=== PATIENT | female | born 1950 | race Caucasian/White ===

== ENCOUNTER 2020-05-17 15:19 | Emergency (ER) | payer MEDICARE, OTHER, SELFPAY ==
--- NOTE | 2020-05-17 15:47 | ED.FEMALEGU ---
HPI - Female Genitourinary General Chief complaint: Urogenital-Female Stated complaint: possible uti Time Seen by Provider: 05/17/20 15:47 Source: patient and RN notes reviewed History of Present Illness HPI Narrative: Patient is a 70-year-old female who presents the urgent care with complaints of a possible UTI. Patient states that she has had a history of UTIs in the past and she has had vague symptoms. Therefore patient states that the her only symptom at this time is cloudy urine. Patient states she noticed a cloudy urine approximately 30 minutes prior to arrival. Denies any urinary frequency, urgency, nausea, vomiting, dysuria, abdominal pain. Patient has not taken anything for her symptoms [id number]. No other acute complaints. No acute distress noted. Patient aware of the plan of care. Related Data Home Medications Medication Instructions Recorded Confirmed hydrochlorothiazide 25 mg PO DAILY 09/20/19 Allergies Allergy/AdvReac Type Severity Reaction Status Date / Time No Known Drug Allergies Allergy Intermediate Unknown Verified 09/20/19 08:18 Review of Systems Review of Systems: Narrative: CONSTITUTIONAL: Denies fever, chills, or sweats. EYES: Denies visual changes, redness, or discharge. ENT: Denies rhinorrhea, congestion, sore throat, or otalgia. CARDIOVASCULAR: Denies chest pain, palpitations, or edema. RESPIRATORY: Denies cough or dyspnea. GASTROINTESTINAL: Denies abdominal pain, nausea, vomiting, or diarrhea. GENITOURINARY: Denies dysuria or hematuria. Reports of cloudy urine SKIN: Denies rash or itching. MUSCULOSKELETAL: Denies back pain, joint pain, or myalgia. NEUROLOGIC: Denies headache, numbness, or weakness. All other systems reviewed are negative, except as documented in HPI. [facility] Past Medical History Medical History (Updated 05/17/20 @ 16:01 by GIANNA Olivia) Bladder cancer HTN (hypertension) Kidney stones UTI (urinary tract infection) Surgical History Surgical History (Updated 09/20/19 @ 08:57 by Christine Aviles) H/O lumpectomy H/O: hysterectomy History of bladder surgery Social History Social History (Updated 09/20/19 @ 08:57 by Christine Aviles) Smoking status: Never smoker Gender identity (if verbalized by the patient): Female Comments At the time of my signature, I reviewed and agree with the nursing past medical, surgical, social, and family history. There is no relevant family history pertinent to the patient complaint. Exam Narrative: Exam Narrative: GENERAL: This is a well-nourished, well-developed patient, in no apparent distress. HEAD: normocephalic, atraumatic. EYES: PERRL. Sclera clear/white. Vision is grossly intact. EARS: External ears normal NOSE: External nose normal with no obvious nasal discharge, nares without redness, no rhinorrhea. THROAT: Mucous membranes moist NECK: Neck supple GASTROINTESTINAL: Abdomen soft, non-tender, nondistended. SKIN: warm, intact with no suspicious lesions or rash, good texture and turgor. NEURO: awake, alert, and oriented to person, place and time. There were no obvious focal neurologic abnormalities. BACK: Negative bilateral CVA tenderness Course Vital Signs Vital signs: Vital Signs Temperature 98.1 F 05/17/20 15:48 Pulse Rate 89 05/17/20 15:48 Respiratory Rate 16 05/17/20 15:48 Blood Pressure 154/85 H 05/17/20 15:48 Pulse Oximetry 99 05/17/20 15:48 Temperature 98.1 F 05/17/20 15:48 Pulse Rate 89 05/17/20 15:48 Respiratory Rate 16 05/17/20 15:48 Blood Pressure 154/85 H 05/17/20 15:48 Pulse Oximetry 99 05/17/20 15:48 Reviewed?patient is informed that they may have pre-hypertension or hypertension based on a blood pressure reading in the department. I recommend the patient call the primary care provider listed on their discharge instructions or a physician of their choice this week to arrange follow-up for further evaluation of possible pre-hypertension or hyper
[2020-05-17 15:48] VITALS: BP 154/85; PULSE 89; RESP 16; TEMP 36.7; O2SAT 99
--- NOTE | 2020-05-17 15:48 | PC.NURSE ---
in br to obtain ua spec.
== END 2020-05-17 16:14 | disposition home or self-care (01) ==
PROVIDERS: Emergency Provider Nurse Practitioner Family; PCP Family Medicine
DX: N39.0 Urinary tract infection, site not specified (principal); I10 Essential (primary) hypertension; Z85.51 Personal history of malignant neoplasm of bladder
CPT/HCPCS: 81003; 87077; 87086; 87088; 99213; G0463

== ENCOUNTER 2021-05-06 09:36 | Emergency (ER) | payer MEDICARE, OTHER, SELFPAY ==
[2021-05-06 09:46] VITALS: BP 144/82; PULSE 91; RESP 18; TEMP 36.2; O2SAT 98
--- NOTE | 2021-05-06 09:54 | ED.GENADULT ---
HPI - General Adult General Chief complaint: Urogenital-Female Stated complaint: uti Source: patient Mode of arrival: ambulatory Limitations: no limitations History of Present Illness HPI narrative: 71 y/o female. PMHx: HTN, Bladder Carcinoma (Followed by Urology MD Garth Dyson). Presents to Express Care today with acute complaints of urinary frequency, bladder pressure , as well as 'low back ache' for the past 72 hours. Positive chills, no fever. No gross abdominal pain, N/V, vaginal discharge. She denies hematuria. Pt tells me she is followed closely by Urology, has follow-up appt in next 1 week, D/T her carcinoma, as well as a reported Hx of frequent UTI. She reports her urinary s/s today mirror those of her 'usual UTI' She is w/o additional acute complaints of illness upon exam. Related Data Allergies Allergy/AdvReac Type Severity Reaction Status Date / Time No Known Drug Allergies Allergy Intermediate Unknown Verified 05/06/21 10:01 Review of Systems Review of Systems: CONSTITUTIONAL: Denies fever, chills, sweats. EYES: Denies visual changes, redness, discharge. ENT: Denies rhinorrhea, congestion, sore throat, otalgia. CARDIOVASCULAR: Denies chest pain, palpitations, edema. RESPIRATORY: Denies dyspnea, wheezing, cough GASTROINTESTINAL: Denies abdominal pain, nausea, vomiting, diarrhea. GENITOURINARY: Denies dysuria, hematuria, abnormal discharge. Positive urinary frequency, pressure. SKIN: Denies rash or itching. MUSCULOSKELETAL: Low back pain. No additional joint pain, or myalgia. NEUROLOGIC: Denies numbness, or focal weakness. PSYCHIATRIC: Denies anxiety or depression. All systems reviewed & are unremarkable except as noted in HPI and below [facility] Past Medical History Medical History Bladder cancer Bladder polyps BMI 29.0-29.9,adult HTN (hypertension) Kidney stones UTI (urinary tract infection) Surgical History Surgical History H/O lumpectomy H/O: hysterectomy History of bladder surgery Social History Social History Smoking status: Former smoker (1981) Alcohol intake: never Gender identity (if verbalized by the patient): Female Exam Narrative: GENERAL: This is a well-nourished, well-developed adult, in no apparent distress. HEAD: normocephalic, atraumatic. EYES: PERRL. Sclera clear/white. EARS: External ears normal, auditory canals clear and without drainage, TMs normal. NOSE: External nose normal. Positive Rhinorrhea, no obstruction, nares patent. THROAT: Mucous membranes moist, posterior pharynx clear. No exudates. NECK: Neck supple, non-tender without lymphadenopathy, masses or thyromegaly. CARDIOVASCULAR: Regular rate and rhythm without murmurs, gallops, or rubs. RESPIRATORY: Clear to auscultation. Breath sounds equal bilaterally. No wheezes, rales, or rhonchi. GASTROINTESTINAL: Abdomen soft, non-tender, nondistended. Bowel sounds are active. No guarding. I do not appreciate CVA tenderness. SKIN: warm, intact with no suspicious lesions or rash, good texture and turgor. NEURO: No focal neurologic deficits. EXTREMITIES: Negative. Course Course Emergency Course: -71 y/o female. Pertinent PMHx frequent UTI & Bladder Carcinoma. -Followed closely by Urology, sees this specialist in next 1 week. -Reports frequency, pressure, low back discomforts. -Unremarkable abdominal PE. -Proceed with Urine Dipstick for analysis. Vital Signs Vital signs: Vital Signs Temperature 36.2 C L 05/06/21 09:46 Pulse Rate 91 05/06/21 09:46 Respiratory Rate 18 05/06/21 09:46 Blood Pressure 144/82 H 05/06/21 09:46 Pulse Oximetry 98 05/06/21 09:46 Temperature 36.2 C L 05/06/21 09:46 Pulse Rate 91 05/06/21 09:46 Respiratory Rate 18 05/06/21 09:46 Blood Pressure 144/82 H 05/06/21 09:46 P
== END 2021-05-06 10:21 | disposition home or self-care (01) ==
PROVIDERS: Emergency Provider Nurse Practitioner Adult Health; PCP Family Medicine
DX: N39.0 Urinary tract infection, site not specified (principal); Z87.891 Personal history of nicotine dependence; I10 Essential (primary) hypertension; Z85.51 Personal history of malignant neoplasm of bladder
CPT/HCPCS: 81003; 87086; 87088; 99213; G0463

== ENCOUNTER 2021-06-08 18:15 | Emergency (ER) | payer MEDICARE, OTHER, SELFPAY ==
[2021-06-08 18:26] VITALS: BP 158/93; PULSE 86; RESP 20; TEMP 36.6; O2SAT 98
--- NOTE | 2021-06-08 19:07 | ED.FEMALEGU ---
HPI - Female Genitourinary General Chief complaint: Urogenital-Female Stated complaint: uti Source: patient and RN notes reviewed Mode of arrival: ambulatory History of Present Illness HPI Narrative: This is a vaginal discomfort and lower back pain for couple days. According to patient in the past when she has had a UTI she has experienced vaginal discomfort and lower back pain. The patient denies SOB, CP, palpitation, extremity numbness, lightheadedness, dizziness, constipation, hematuria, vaginal discharge, pelvic pain, incontinence diarrhea, chills, or fever. MD elicited complaint: UTI Related Data Allergies Allergy/AdvReac Type Severity Reaction Status Date / Time No Known Drug Allergies Allergy Intermediate Unknown Verified 05/06/21 10:01 Review of Systems Review of Systems: A 14 organ system Review of Systems was performed and pertinent positives included in the HPI, otherwise remaining ROS is negative. [facility] Past Medical History Medical History Bladder cancer Bladder polyps BMI 29.0-29.9,adult HTN (hypertension) Kidney stones UTI (urinary tract infection) Surgical History Surgical History H/O lumpectomy H/O: hysterectomy History of bladder surgery Family History Family History (Updated 06/08/21 @ 19:08 by PATRICE Ramachandran) Other Family history non-contributory Social History Social History Smoking status: Former smoker (1981) Alcohol intake: never Gender identity (if verbalized by the patient): Female Exam Narrative: GENERAL: This is a well-nourished, well-developed patient, in no apparent distress. HEAD: normocephalic, atraumatic. EYES: PERRL. Sclera clear/white. Vision is grossly intact. EARS: External ears normal, auditory canals clear and without drainage, TMs normal without perforation. Hearing grossly intact. NOSE: External nose normal with no obvious nasal discharge, nares without redness, no rhinorrhea. THROAT: Mucous membranes moist, posterior pharynx clear. NECK: Neck supple, non-tender without lymphadenopathy, masses or thyromegaly. CARDIOVASCULAR: Regular rate and rhythm without murmurs, gallops, or rubs. RESPIRATORY: Clear to auscultation. Breath sounds equal bilaterally. No wheezes, rales, or rhonchi. GASTROINTESTINAL: Abdomen soft, non-tender, nondistended. Bowel sounds are active. No hepato-splenomegaly, or palpable masses. No guarding. SKIN: warm, intact with no suspicious lesions or rash, good texture and turgor. NEURO: awake, alert, and oriented to person, place and time. There were no obvious focal neurologic abnormalities. Steady gait EXTREMITIES: Normal range of motion. No edema. No calf tenderness. Negative Homans sign bilaterally. BACK: Nontender without deformity or crepitance. No flank tenderness. Course Course Emergency Course: Patient will discharge home with Macrobid Vital Signs Vital signs: Vital Signs Temperature 97.9 F 06/08/21 18:26 Pulse Rate 86 06/08/21 18:26 Respiratory Rate 20 06/08/21 18:26 Blood Pressure 158/93 H 06/08/21 18:26 Pulse Oximetry 98 06/08/21 18:26 Temperature 97.9 F 06/08/21 18:26 Pulse Rate 86 06/08/21 18:26 Respiratory Rate 20 06/08/21 18:26 Blood Pressure 158/93 H 06/08/21 18:26 Pulse Oximetry 98 06/08/21 18:26 MDM - Female Genitourinary Differential Diagnosis Differential diagnosis: Likely urinary tract infection, bacterial vaginosis and vaginitis Lab Data Attestation: I reviewed the patient's lab results. Lab results narrative: UTI Labs: Urine Glucose Negative Reference Range: Negative Urine Bilirubin Negative Reference Range: Negative Urine Ketone Negative
== END 2021-06-08 19:10 | disposition home or self-care (01) ==
PROVIDERS: Emergency Provider Nurse Practitioner; PCP Family Medicine
DX: N39.0 Urinary tract infection, site not specified (principal); I10 Essential (primary) hypertension; Z87.891 Personal history of nicotine dependence
CPT/HCPCS: 81003; 87086; 99213; G0463

== ENCOUNTER 2022-12-26 00:24 | Day surgery (SDC) | payer MEDICARE, OTHER, SELFPAY ==
[2022-12-12 13:55] VITALS: BMI 28.3
[2022-12-26 06:12] VITALS: BP 154/77; PULSE 100; RESP 16; TEMP 36.4; O2SAT 97; BMI 28.9
[2022-12-26] MEDS: LACTATED RINGERS 1,000 ML 150 ML IV CONT (06:32)
--- NOTE | 2022-12-26 06:52 | P.PNAN_ITS ---
Anes - Initial Pre Proc Eval Procedure: Operation Date: 12/26/22 07:30 Proposed Procedures p Screening Colonoscopy - Chidi Aguero MD Date/Time: 12/26/22 06:52 Surgeon: Chidi Aguero MD Pre Op Diagnosis: neoplasm screening Patient Data Age: 72 Gender: F Height: 1.7 m Weight: 83.8 kg Last Vital Signs Temp 36.4 C L 12/26/22 06:12 Pulse 100 12/26/22 06:12 Resp 16 12/26/22 06:12 BP 154/77 H 12/26/22 06:12 Pulse Ox 97 12/26/22 06:12 O2 Del Method Room Air 12/26/22 06:12 Allergies Allergy/AdvReac Type Severity Reaction Status Date / Time No Known Drug Allergies Allergy Intermediate Unknown Verified 12/26/22 06:17 Patient hx anesthesia problems: none Family hx anesthesia problems: none Results Review: All pre-operative results and documents have been reviewed as part of the pre- operative evaluation. [facility] Past Medical History Medical History (Updated 11/11/22 @ 08:23 by Rex Benedict MD) Bladder cancer Bladder polyps BMI 28.0-28.9,adult BMI 29.0-29.9,adult HTN (hypertension) Kidney stones Screen for colon cancer Screening mammogram, encounter for UTI (urinary tract infection) Surgical History Surgical History H/O lumpectomy H/O: hysterectomy History of bladder surgery Family History Family History Other Family history non-contributory Social History Social History Smoking status: Former smoker Alcohol intake: never Substance use type: does not use Living arrangements: with family Gender identity (if verbalized by the patient): Female Spiritual care concerns: No Anes - Eval Final PreProcedure Day of Procedure 12/26/22 06:52 Patient weight: overweight Heart: regular rate and rhythm Lungs: clear to auscultation Airway: Mallampati scale class II Neurological: alert and oriented Last oral intake: >/= 8 hours ASA classification: II Emergent: no Anesthetic plan: proceed Anesthesia type and monitoring: general GIVS and standard monitoring Results Review: All pre-operative results and documents have been reviewed as part of the pre- operative evaluation. Informed Consent: The patient's anesthetic plan and its attendant risks and benefits were discussed with the patient/family/POA. Questions were solicited and answers provided to the satisfaction of the patient/family/POA.
--- NOTE | 2022-12-26 07:47 | P.HP_ITS ---
History of Present Illness History of Present Illness Consent: Risks, benefits, and alternatives have been discussed and questions answered. Patient agrees to proceed with procedure. Chief complaint: neoplasm screening Narrative: Brooke Fournier is a 72 year old female Presents for screening colonoscopy. Patient's current weight appetite and bowel movements are normal. Patient denies abdominal pain. She has had no bleeding. Family history is significant her son and brother both have had colon polyps. Patient's previous colonoscopy more than 10 years ago was unremarkable. Patient presents today for screening exam. Review of Systems Review of Systems: Review of systems noncontributory. [facility] Past Medical History Medical History (Updated 11/11/22 @ 08:23 by Rex Benedict MD) Bladder cancer Bladder polyps BMI 28.0-28.9,adult BMI 29.0-29.9,adult HTN (hypertension) Kidney stones Screen for colon cancer Screening mammogram, encounter for UTI (urinary tract infection) Surgical History Surgical History H/O lumpectomy H/O: hysterectomy History of bladder surgery Family History Family History Other Family history non-contributory Social History Social History Smoking status: Former smoker Alcohol intake: never Substance use type: does not use Living arrangements: with family Gender identity (if verbalized by the patient): Female Spiritual care concerns: No Meds Home Medications and Allergies Allergies Allergy/AdvReac Type Severity Reaction Status Date / Time No Known Drug Allergies Allergy Intermediate Unknown Verified 12/26/22 06:17 Vital Signs Vital Signs - 24 hr 12/26/22 06:12 Temperature 97.5 F L Pulse Rate 100 Respiratory Rate 16 Blood Pressure 154/77 H Pulse Oximetry 97 Oxygen Delivery Room Air Exam Narrative: Physical exam reveals patient to be alert. Vital signs stable. HEENT exam is unremarkable. Patient is anicteric. Lungs are clear to auscultation and percussion. Heart is without murmur or extra sounds. Abdomen bowel sounds are present soft nontender with no organomegaly. Digital external rectal exam is normal. Assessment and Plan Assessment and plan (1) Screen for colon cancer: Code(s): Z12.11 - Encounter for screening for malignant neoplasm of colon Status: Acute Assessment and Plan: Patient presents today for screening colonoscopy. Risk factors include having had son and brother who have had colon polyps. Further recommendations may be given after endoscopy. Consider follow-up at 5 to 7 year intervals.
[2022-12-26 07:49] VITALS: BP 123/67; PULSE 83; RESP 24; O2SAT 98
[2022-12-26 07:59] VITALS: BP 129/71; PULSE 73; RESP 23; O2SAT 100
[2022-12-26 08:09] VITALS: BP 147/82; PULSE 66; RESP 19; O2SAT 100
== END 2022-12-26 08:19 | disposition home or self-care (01) ==
PROVIDERS: PCP Family Medicine; Visit Provider Internal Medicine Gastroenterology
PROC: 0DJD8ZZ Inspection of Lower Intestinal Tract, Via Natural or Artificial Opening Endoscopic (ICD-10-PCS; CPT 45378; principal; 2022-12-26 07:30)
DX: Z12.11 Encounter for screening for malignant neoplasm of colon (principal); Z87.891 Personal history of nicotine dependence
CPT/HCPCS: G0121; J2704; J7120

== ENCOUNTER 2023-02-10 11:38 | Outpatient (CLI) | payer MEDICARE, OTHER, SELFPAY ==
--- NOTE | ~2023-02-10 | XR_ITS ---
EXAM: XR hip RT min 3V w AP pelvis DATE: 02/10/2023 11:57 HISTORY: M25.559 - Pain in unspecified hip, righ, fall 2 weeks ago . COMPARISON: None available. FINDINGS: Normal mineralization. No fracture or dislocation. No lytic or blastic lesion. Mild bilate ral hip osteoarthritis. Mild degenerative change to the pubic symphysis. Lower lumbar degenerative di sc disease. No erosion or periosteal change. Pelvic phleboliths. Scattered pelvic and hip enthesopath y. IMPRESSION: No acute finding in the pelvis or right hip. Reviewed, dictated and finalized at location K.
== END 2023-02-10 11:39 | disposition home or self-care (01) ==
LOC: ANHIMG 11:42
PROVIDERS: PCP Family Medicine; Visit Provider Nurse Practitioner Family
DX: M25.559 Pain in unspecified hip (principal)
CPT/HCPCS: 73502

== ENCOUNTER 2023-03-30 15:25 | Emergency (ER) | payer MEDICARE, OTHER, SELFPAY ==
[2023-03-30 15:40] VITALS: BP 172/82; PULSE 78; RESP 12; TEMP 36.7; O2SAT 100
--- NOTE | 2023-03-30 16:23 | ED.FEMALEGU ---
HPI - Female Genitourinary General Chief complaint: Urogenital-Female Stated complaint: urinary issue Time Seen by Provider: 03/30/23 16:19 Source: patient and RN notes reviewed Mode of arrival: ambulatory Limitations: no limitations History of Present Illness HPI Narrative: Patient presents today complaining of 2 day history of suprapubic pressure. Denies any additional symptoms to include dysuria, frequency, urgency. Patient states she has a history of bladder cancer and does have chronic hematuria. Related Data Allergies Allergy/AdvReac Type Severity Reaction Status Date / Time No Known Drug Allergies Allergy Intermediate Unknown Verified 03/30/23 15:34 Review of Systems Review of Systems: CONSTITUTIONAL: Denies body aches, fever, chills, or sweats. EYES: Denies visual changes, redness, or discharge. ENT: Denies rhinorrhea, congestion, sore throat, or otalgia. CARDIOVASCULAR: Denies chest pain, palpitations, or edema. RESPIRATORY: Denies cough or dyspnea. GASTROINTESTINAL: Denies abdominal pain, nausea, vomiting, or diarrhea. GENITOURINARY: Denies dysuria or hematuria.+ suprapubic pressure SKIN: Denies rash, itching, or wounds. MUSCULOSKELETAL: Denies back pain, joint pain, or myalgia. NEUROLOGIC: Denies headache, numbness, tingling, or weakness. PSYCH: Denies depression or anxiety. [facility] Past Medical History Medical History Bladder cancer Bladder polyps BMI 28.0-28.9,adult BMI 29.0-29.9,adult HTN (hypertension) Kidney stones Screen for colon cancer Screening mammogram, encounter for UTI (urinary tract infection) Surgical History Surgical History H/O lumpectomy H/O: hysterectomy History of bladder surgery Family History Family History Father Acute myocardial infarction Mother , breast cancer. Breast cancer Sibling No problems noted. 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 Gender identity (if verbalized by the patient): Female Spiritual care concerns: No Comments At time of signature, I have reviewed and agree with nursing past medical, surgical, social and family history unless otherwise noted. Please see nursing chart for further information. There is no relevant family history pertinent to the presenting complaint Exam Narrative: GENERAL: Well-appearing, well-nourished, and in no acute distress. HEAD: Normocephalic, atraumatic. EYES: EOMI. No redness or drainage. Conjunctivae normal. ENT: Mucous membranes pink and moist. NECK: Normal AROM. CHEST: No respiratory distress. EXTREMITIES: Normal range of motion. No edema. SKIN: Warm, dry, no rash. Capillary refill normal. Normal skin turgor. NEURO: No focal deficits. Alert and oriented x3. Gait steady. PSYCH: Normal affect. No signs of depression or anxiety. Course Course Level of Care: Express Care Visit Vital Signs Vital signs: Vital Signs Temperature 98.1 F 03/30/23 15:40 Pulse Rate 78 03/30/23 15:40 Respiratory Rate 12 03/30/23 15:40 Blood Pressure 172/82 H 03/30/23 15:40 Pulse Oximetry 100 03/30/23 15
== END 2023-03-30 16:31 | disposition home or self-care (01) ==
PROVIDERS: Emergency Provider Nurse Practitioner; PCP Family Medicine
DX: N30.01 Acute cystitis with hematuria (principal); Z87.891 Personal history of nicotine dependence; I10 Essential (primary) hypertension; Z85.51 Personal history of malignant neoplasm of bladder
CPT/HCPCS: 81003; 87086; 99213; G0463

== ENCOUNTER 2023-12-22 13:59 | Emergency (ER) | payer MEDICARE, OTHER, SELFPAY ==
--- NOTE | 2023-12-22 14:02 | ED.EXTPRO ---
HPI - Extremity Problem General Chief complaint: Extremity Problem,Nontraumatic Stated complaint: right knee painful Time Seen by Provider: 12/22/23 14:25 Source: patient and RN notes reviewed Mode of arrival: ambulatory Limitations: no limitations History of Present Illness HPI Narrative: 73-year-old female presents with concern for right knee pain that started last night after she moves furniture. She denies any injury or trauma. She reports anterior pain that goes down the right side of the knee. She denies any pain at rest. Reports pain with bending and weight-bearing of the knee. She denies redness, warmth, swelling. Denies any lower leg swelling. MD Complaint: extremity pain Related Data Allergies Allergy/AdvReac Type Severity Reaction Status Date / Time No Known Drug Allergies Allergy Intermediate Unknown Verified 12/22/23 14:21 Review of Systems Review of Systems: CONSTITUTIONAL: Denies malaise, chills, sweats, or fever. CARDIOVASCULAR: Denies chest pain, palpitations, or edema. RESPIRATORY: Denies cough or dyspnea. SKIN: Denies rash or itching, bruising, redness, swelling. MUSCULOSKELETAL: Reports right knee pain NEUROLOGIC: Denies numbness, weakness All systems reviewed & are unremarkable except as noted in HPI and below [facility] Past Medical History Medical History Bladder cancer Bladder polyps BMI 28.0-28.9,adult BMI 29.0-29.9,adult BMI 30.0-30.9,adult BMI 31.0-31.9,adult Encounter to discuss test results HTN (hypertension) Kidney stones Screen for colon cancer Screening mammogram, encounter for UTI (urinary tract infection) Surgical History Surgical History H/O lumpectomy H/O: hysterectomy History of bladder surgery Hx of colonoscopy Family History Family History Father Acute myocardial infarction Mother , breast cancer. Breast cancer Sibling No problems noted. Other Family history non-contributory Social History Social History Smoking status: Former smoker Second hand tobacco smoke exposure: No Alcohol intake: never Substance use: never Substance use type: does not use Do You Feel Safe in your Home?: Yes Lack of Transportation: No Lack of Food: Never True Current Housing: I Have Housing Concerned About Future Housing: No Difficulty Paying Gas/Electric Bills: No Difficulty Paying for Meds: No Currently Unemployed: No Education: High School Diploma/GED Difficulty w/ Childcare or Family Care: No Living arrangements: with family Occupation/Education: retired 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 Gender identity (if verbalized by the patient): Female Spiritual care concerns: No Comments At time of signature, agree with nursing past medical, surgical, social and family history. There is no relevant family history pertinent to the presenting complaint Exam Narrative: GENERAL: Well-appearing, well-nourished, and in no acute distress. HEAD: Normocephalic, atraumatic. EYES: PERRLA, conjunctivae clear NECK: Supple. CHEST: Speaks in full sentences. No respiratory distress. HEART: Regular rate and rhythm. Normal and equal peripheral pulses. EXTREMITIES: Right lower extremity has normal strength and sensation, normal range of motion. No edema or ecchymosis. 5/5 strength with knee flexion and extension. Normal sensation with sensitivity to light touch and pain. No point tenderness. No open wounds, no skin tenting, no devitalized tissue or atrophy, no trophic changes, no obvious deformity, alignment normal, nearby joints and structures intact. Distal pulses palpable and equal bilaterally, skin warm, dry, pink. Capillary refill less than 3 seconds. SKIN: Warm, dry, no rash. NEURO:
[2023-12-22 14:13] VITALS: BP 158/85; PULSE 80; RESP 16; TEMP 36.5; O2SAT 99
== END 2023-12-22 15:00 | disposition home or self-care (01) ==
PROVIDERS: Emergency Provider Nurse Practitioner; PCP Family Medicine
DX: M25.561 Pain in right knee (principal); I10 Essential (primary) hypertension; Z85.51 Personal history of malignant neoplasm of bladder
CPT/HCPCS: 99212; G0463

== ENCOUNTER 2023-12-25 14:21 | Outpatient (CLI) | payer MEDICARE, OTHER, SELFPAY ==
--- NOTE | ~2023-12-25 | XR_ITS ---
XR knee RT 3V DATE: 12/25/2023 14:44 INDICATION: Right knee pain TECHNIQUE: [place], AP and lateral views COMPARISON: None FINDINGS: Periarticular spurring and mild joint space narrowing at the patellofemoral compartment con sistent with moderate patellofemoral osteoarthritis. Medial and lateral compartment joint spaces are relatively well preserved. There is subtle chondrocal cinosis at the medial and lateral compartments. Diffuse osteopenia. No fracture or dislocation or joint effusion, radiopaque intra-articular loose body, periosteal react ion or bone destruction is noted. IMPRESSION: Moderate patellofemoral osteoarthritis Mild chondrocalcinosis Prominent osteopenia Reviewed, dictated and finalized at location L.
== END 2023-12-25 14:22 ==
LOC: MICIMG 14:22
PROVIDERS: PCP Nurse Practitioner Adult Health; Visit Provider Nurse Practitioner Adult Health
DX: M17.11 Unilateral primary osteoarthritis, right knee (principal); M85.861 Other specified disorders of bone density and structure, right lower leg
CPT/HCPCS: 73562

== ENCOUNTER 2024-04-28 07:13 | Emergency (ER) | payer MEDICARE, OTHER, SELFPAY ==
[2024-04-28 07:20] VITALS: BP 168/94; PULSE 103; RESP 16; TEMP 36.6; O2SAT 97
--- NOTE | 2024-04-28 07:24 | ECG_ITS ---
Test Date: 2024-04-28 07:34:10 Measurements Intervals [place] Rate: 87 P: 39 WA: 154 QRS: 2 QRSD: 88 T: 40 QT: 338 QTc: 408 Interpretive Statements SINUS RHYTHM BASELINE ARTIFACT- I, II, AVR, AVL, AVF NORMAL ECG No previous ECG available for comparison Electronically Signed On 04-28-2024 08:12:21 CDT by Wale Lagunas D.O.
--- NOTE | 2024-04-28 07:24 | ED.EXTPRO ---
HPI - Extremity Problem General Chief complaint: Extremity Problem,Nontraumatic Stated complaint: R shoulder pain Time Seen by Provider: 04/28/24 07:20 History of Present Illness HPI Narrative: Pt presents with pain inside right shoulder blade since last night. Pt denies any specific injury but says the pain kept her up all night and has some radiation down right arm so daughter concerned it might be her heart. Pt has no CP or SOB. Pain is reproduced with certain movements and improved with rest. Described as dull ache. Pt did not take anything for pain. Related Data Allergies Allergy/AdvReac Type Severity Reaction Status Date / Time No Known Drug Allergies Allergy Intermediate Unknown Verified 02/13/24 09:46 Review of Systems Review of Systems: All systems reviewed & are unremarkable except as noted in HPI and below PMFSH Past Medical History Medical History (Updated 04/28/24 @ 08:18 by Kodi Merino III, DO) Bladder cancer Bladder polyps BMI 28.0-28.9,adult BMI 29.0-29.9,adult BMI 30.0-30.9,adult BMI 31.0-31.9,adult Breast mass, right Encounter to discuss test results HTN (hypertension) Kidney stones Knee pain Osteoarthritis of right patellofemoral joint Screen for colon cancer Screening mammogram, encounter for UTI (urinary tract infection) Surgical History Surgical History H/O lumpectomy H/O: hysterectomy History of bladder surgery Hx of colonoscopy Family History Family History Father Acute myocardial infarction Mother , breast cancer. Breast cancer Sibling No problems noted. 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 Gender identity (if verbalized by the patient): Female Spiritual care concerns: No Exam Const: General: healthy appearing and no acute distress Nutritional Appearance: well nourished Orientation/consciousness: patient oriented x3 Limitations: no limitations HENMT: Head: normal to inspection Chest: Chest palpation & inspection: normal inspection of the chest Resp: Effort & Inspection: normal respiratory effort Auscultation: clear to auscultation bilaterally Cardio: Rate: regular rate Rhythm: regular rhythm GI: GI Palp: Yes Soft to palpation Auscultation: normal bowel sounds Skin: General skin exam: normal color Rashes: no rashes Neuro: General: patient oriented x3, moves all extremities, no meningeal signs and no focal motor deficits Speech: normal speech Extrem: General: normal to inspection and no clubbing, cyanosis or edema Other: tender over rhomboid muscle to palpation which reproduces pain on right. Psych: Mental Status: mental status grossly normal Affect: normal affect Attitude: cooperative Course Vital Signs Vital signs: Vital Signs Temperature 97.9 F 04/28/24 07:20 Pulse Rate 103 H 04/28/24 07:20 Respiratory Rate 16 04/28/24 07:20 Blood Pressure 168/94 H 04/28/24 07:20 Pulse Oximetry 97 04/28/24 07:20 Oxygen Delivery Room Air 04/28/24 07:20 Temperature 98.0 F 04/28/24 08:27 Pulse Rate 70 04/28/24 08:27 Respiratory Rate 16 04/28/24 08:2
[2024-04-28] MEDS: KETOROLAC 30 MG/ML VIAL (*BKC) IM (07:27)
[2024-04-28 08:27] VITALS: BP 163/99; PULSE 70; RESP 16; TEMP 36.7; O2SAT 100
== END 2024-04-28 08:28 | disposition home or self-care (01) ==
PROVIDERS: Emergency Provider Emergency Medicine; PCP Family Medicine
DX: S46.811A Strain of other muscles, fascia and tendons at shoulder and upper arm level, right arm, initial encounter (principal); I10 Essential (primary) hypertension; M17.11 Unilateral primary osteoarthritis, right knee; Z85.51 Personal history of malignant neoplasm of bladder; Z87.442 Personal history of urinary calculi; Z87.440 Personal history of urinary (tract) infections; Z87.891 Personal history of nicotine dependence; Z90.710 Acquired absence of both cervix and uterus; X58.XXXA Exposure to other specified factors, initial encounter
CPT/HCPCS: 93005; 96372; 99283; J1885

== ENCOUNTER 2024-06-13 15:34 | Emergency (ER) | payer MEDICARE, OTHER, SELFPAY ==
--- NOTE | 2024-06-13 15:46 | ED.EXTPRO ---
HPI - Extremity Problem General Chief complaint: Extremity Problem,Nontraumatic Stated complaint: right shoulder pain Time Seen by Provider: 06/13/24 15:51 Source: patient, RN notes reviewed and old records reviewed Mode of arrival: ambulatory Limitations: no limitations History of Present Illness HPI Narrative: 74-year-old female presents to the [facility] with right scapular pain. Had a similar episode in late April, states it did get better. Patient did take 1 200 mg ibuprofen just prior to arrival. Reporting improvement of symptoms Related Data Allergies Allergy/AdvReac Type Severity Reaction Status Date / Time No Known Drug Allergies Allergy Intermediate Unknown Verified 06/13/24 15:43 Review of Systems Review of Systems: All systems reviewed & are unremarkable except as noted in HPI and below Constitutional: Constitutional: Reports no additional constitutional complaints Eyes: Eyes: Reports no additional eye complaints ENT: Reports system reviewed and no additional complaints, except as documented Cardiovascular: Cardiovascular: Reports no additional cardiovascular complaints, Denies chest pain and Denies dyspnea Respiratory: Respiratory: Reports no additional respiratory complaints, Denies chest congestion, Denies cough and Denies dyspnea Gastrointestinal: Gastrointestinal: Reports no additional gastrointestinal complaints, Denies abdominal pain, Denies nausea and Denies vomiting Musculoskeletal: Musculoskeletal: Reports as per HPI Integumentary/Breasts: Skin/Breast: Reports system reviewed and no additional complaints, except as docu Neurologic: Reports system reviewed and no additional complaints, except as documented Psychiatric: Psychiatric: Reports no additional psychiatric complaints Allergic/Immunologic: Allergic/Immunologic: Reports no additional allergic/immunologic complaints PMFSH Past Medical History Medical History Bladder cancer Bladder polyps BMI 28.0-28.9,adult BMI 29.0-29.9,adult BMI 30.0-30.9,adult BMI 31.0-31.9,adult Breast mass, right Encounter to discuss test results HTN (hypertension) Kidney stones Knee pain Osteoarthritis of right patellofemoral joint Screen for colon cancer Screening mammogram, encounter for UTI (urinary tract infection) Surgical History Surgical History H/O lumpectomy H/O: hysterectomy History of bladder surgery Hx of colonoscopy Family History Family History Father Acute myocardial infarction Mother , breast cancer. Breast cancer Sibling No problems noted. 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 Gender identity (if verbalized by the patient): Female Spiritual care concerns: No Comments At the time of my signature, I reviewed and agree with the nursing past medical, surgical, social, and family history. There is no relevant family history pertinent to the patient complaint. Exam Const: General: cooperative, healthy appearing, comfortable, no acute distress, well developed, alert and well nourished Nutritional Appearance: well nouris
[2024-06-13 15:55] VITALS: BP 141/71; PULSE 94; RESP 16; TEMP 37.2; O2SAT 99
== END 2024-06-13 16:10 | disposition home or self-care (01) ==
PROVIDERS: Emergency Provider Nurse Practitioner; PCP Family Medicine
DX: S46.911A Strain of unspecified muscle, fascia and tendon at shoulder and upper arm level, right arm, initial encounter (principal); X58.XXXA Exposure to other specified factors, initial encounter; I10 Essential (primary) hypertension; M17.11 Unilateral primary osteoarthritis, right knee; Z87.891 Personal history of nicotine dependence
CPT/HCPCS: 99213; G0463

== ENCOUNTER 2024-06-17 15:07 | Outpatient (CLI) | payer MEDICARE, OTHER, SELFPAY ==
--- NOTE | ~2024-06-17 | XR_ITS ---
Thoracic spine: Clinical Indication: Right shoulder pain AP and lateral views were performed. There is probable mild anterior wedging deformity of T11. There is moderate degenerative disc narrowi ng throughout the thoracic spine. Paravertebral soft tissues appear normal. 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 Moderate degenerative disc narrowing throughout the thoracic spine. Reviewed, dictated and finalized at location . 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 Moderate degenerative disc narrowing throughout the thoracic spine.
== END 2024-06-17 15:08 | disposition home or self-care (01) ==
PROVIDERS: PCP Family Medicine
DX: M25.511 Pain in right shoulder (principal)
CPT/HCPCS: 72072

== ENCOUNTER 2025-03-23 12:30 | Outpatient (RCR) | payer MEDICARE, OTHER, SELFPAY ==
--- NOTE | 2025-02-09 13:32 | OPREHPOC ---
Outpatient Therapy Plan of Care This is a Multidisciplinary Plan of Care that may contain components documented by all disciplines (PT, OT, and ST.) PT Problem 1 PT Problem #1 Knowledge Deficit PT Goal 1 Goal / Goal Update *independent with HEP Target Visit 10 PT Problem 2 PT Problem #2 Impaired Strength PT Goal 1 Goal / Goal Update *increase strength of R hip/LE to improve gait pattern and mobility 1* hip abduction strength of 4/5 2* hip flexion strength of 4+/5 3* single leg standing x 6 seconds with good stability Target Visit 10 PT Problem 3 PT Problem #3 Impaired Functional Mobility PT Goal 1 Goal / Goal Update 1* 2 minute walking test distance of 375' with cane 2* up/down 12 steps with one hand railing, independent 3* pt ambulate with cane and good gait pattern with R LE Target Visit 10 PT Problem 4 PT Problem #4 Pain PT Goal 1 Goal / Goal Update * pain rating at worst of 2/10 with increased activity Target Visit 10
--- NOTE | 2025-02-09 13:32 | PTOPEVAL1 ---
Assessment and note entered by Louise Moore, PT Evaluation Information Assessment Status Evaluation ICD-10 Condition Codes (PT) Pain in right hip M25.551,Difficulty Walking R26.2 ,Abnormalities of gait and mobility R26.9,Weakness R53.1,Encounter for other orthopedic aftercare Z47.89 Other ICD-10 Condition Codes ( S72.141A closed, displaced intertrochanteric PT) fracture R femur Onset 12-23-24 Subjective Information since surgery have been using the walker, started some walking without it at home; had HH therapy- had exercises from them, not doing very much; want to get back to gardening and driving- not driven yet have pain and issues with R knee OA, meniscal tear /pain- had injections for it activity: prior to surgery- active and independent ; 2 entry steps and basement- but have not been into basement for laundry- bilateral hand rails; Reported Pain Level Pain Score Self Report Additional Pain Score Comments pain range in the past week 0-2/10; R knee and have arthritis; hip sore, but not bad increase pain: activity tolerance- standing/ walking 30 minutes, cannot lie on R side decrease pain: over the counter meds, ice on knee with sleeping, doing OK, but problems lying on R side Assessment PT Clinical Summary Brooke is s/p fall with ORIF of R femur. She is 7 weeks post op and does not have any restrictions in activity, is WBAT. She has completed PT services. Prior to surgery, she was active and did not use an assistive device. LE functional scale rating of 50% limitation in activity level. She is using the wheeled walker for mobility and has not gone into her basement. With the evaluation: R hip and knee ROM is WNL and no pain reported; weakness of R hip abduction of 3/5 and flexion 3+/5; 2 minute walking test distance of 310' with wheeled walker; poor gait pattern with decrease R hip and knee flexion and circumduction of LE and decreased weight shift onto R LE. Skilled PT services are indicated for modalities to decrease pain; therapeutic exercises to increase R hip strength and mobility with progression to lesser assistive device and education for HEP and gait pattern. Plan of Care Interventions Gait Training,Manual Therapy,Neuro Re-education, Patient/Caregiver Education,Therapeutic Activities ,Therapeutic Exercise PT Services Indicated Yes Treatment Frequency and 1-2x/wk for 10 visits Duration These treatments will address the objective and functional deficits as defined above. The patient will be advanced safely and appropriately in order for the patient to progress towards his/her prior level of function. Additional exercises will be introduced and as well as a comprehensive home exercise program upon discharge, if needed, ?to ensure carryover of functional gains achieved in the clinic. This treatment plan has been reviewed and agreement upon by the patient.
--- NOTE | 2025-03-23 13:34 | PTOPDC ---
Assessment and note entered by Louise Moore, PT Assessment Status Discharge ICD-10 Condition Codes (PT) Pain in right hip M25.551,Difficulty Walking R26.2 ,Abnormalities of gait and mobility R26.9,Weakness R53.1,Encounter for other orthopedic aftercare Z47.89 Other ICD-10 Condition Codes ( S72.141A closed, displaced intertrochanteric PT) fracture R femur Onset 12-23-24 Subjective Information have improved alot since coming here-- walking better and stronger; walking some without the cane in the house; have been doing the exercises; doing the stairs at home without any problem; some hesitation with lifting bag of groceries from the floor; R knee arthritis continues to bother her. Reported Pain Level Pain Score Self Report Additional Pain Score Comments pain range in the past week 0-2/10; R knee arthritis; no hip pain, but some tenderness; Assessment PT Clinical Summary Brooke has received 10 PT sessions. She has improved with all areas since starting therapy: today with: 2 minute walking test distance of 350' with cane; able to go up/down 12 steps with cane and one hand railing independent; self assessment with LE functional scale rating of 43% limitation in activity level; able to transfer sitting/floor with use of UEs, independent; able to walk on uneven surface/in grass with cane and no loss of balance; able to walk and carry 5#; continues to have weakness of R hip abduction 3/5; education completed for HEP and mobility. The goals were partially met. Discharge PT. She is to continue with her HEP. And progress her activity and mobility to without the cane, as tolerated. Plan of Care PT Services Indicated No
== END 2025-03-29 11:00 | disposition home or self-care (01) ==
LOC: ANHPT 12:30
PROVIDERS: PCP Family Medicine
DX: S72.141A Displaced intertrochanteric fracture of right femur, initial encounter for closed fracture (principal)
CPT/HCPCS: 97110; 97116; 97161; 97530

== ENCOUNTER 2025-04-15 15:13 | Outpatient (CLI) | payer MEDICARE, OTHER, SELFPAY ==
--- NOTE | ~2025-04-15 | DEXA_ITS ---
Bone Density Report Name: DELMI DALAL Age: 75 Sex: Female Ethnicity: White Date of : 1950 Indication: postmenopausal; screening for osteoporosis; prior fracture; cancer; hysterectomy; Referring Provider: CHLOE FAY Study: Bone densitometry was performed. Exam Date: April 15, 2025 Accession number: [id number] Bone Density: Region BMD T-score Z-score Classification AP Spine(L1-L4) 1.218 1.6 4.0 Normal Femoral Neck (Left) 0.712 -1.2 0.9 Osteopenia Total Hip (Left) 0.904 -0.3 1.5 Normal World Health Organization criteria for BMD impression classify patients as: Normal (T-score at or above -1.0), Osteopenia (T-score between -1.0 and -2.5), or Osteoporosis (T-score at or below -2.5). 10-year Fracture Risk: FRAX not reported because: Prior hip or vertebral fracture Treated for osteoporosis Clinical Information Provided by Patient: Have had a previous hip or vertebral fracture Has had a low trauma fracture Is being treated for osteoporosis Has used the following medications: Vitamin D Has the following medical conditions: Cancer, Hysterectomy Patient maximum height was 67 Menopause Age: 50 No regular weight bearing exercise Drinks caffeinated beverages Onset of menses at age 12 Number of children 2 Impression: The patient has low bone mass, based on the Left Femoral Neck T-score. The patient has risk factors, including: previous fracture. Discussion: It is important to ask patients whether they are taking their medications and to encourage continued and appropriate compliance with their osteoporosis therapies to reduce fracture risk. It is also important to review their risk factors and encourage appropriate calcium and vitamin D intakes, exercise, fall prevention and other lifestyle measures. Follow-Up: Consider a repeat BMD and Vertebral Fracture Assessment (VFA) exam in 2 years or sooner if medically necessary, to reassess this patient's status. Reported by: PRIYA on 04/15/2025 3:40:00 PM. Reviewed, dictated and finalized at location A.
== END 2025-04-15 15:14 | disposition home or self-care (01) ==
LOC: MICIMG 15:15
PROVIDERS: Visit Provider Nurse Practitioner Adult Health
DX: Z78.0 Asymptomatic menopausal state (principal); M85.852 Other specified disorders of bone density and structure, left thigh
CPT/HCPCS: 77080

== ENCOUNTER 2025-04-16 15:09 | Emergency (ER) | payer MEDICARE, OTHER, SELFPAY ==
--- NOTE | 2025-04-16 15:19 | ED_ITS ---
HPI - Back Pain/Injury General Chief Complaint: Back Pain/Injury Stated Complaint: Back Pain Time Seen by Provider: 04/16/25 15:25 Source: patient Mode of arrival: ambulatory Limitations: no limitations History of Present Illness HPI Narrative: Brooke is a 75-year-old female patient presenting to the clinic today with complaints left-sided low back pain x2 days, and left midback pain, and left upper back pain since this morning. Pain is a sharp ache. She reports she was moving/lifting furniture a couple days ago. Has been taking Tylenol and ibuprofen for her symptoms. States the back pain was worse last night and rated her pain at 10/10 and she slept in a recliner this morning she developed the left mid and left upper back discomfort. Rates pain currently 5/10. No known fall or other injury. Denies any urinary symptoms. Denies any saddle anesthesia or loss of bowel or bladder. No fevers or chills. Denies any chest pain. No blood in her urine or stool. Last bowel movement was this morning and normal for the patient. Related Data Home Medications ?Medication ?Instructions ?Recorded ?Confirmed ?Last Taken ?Type cholecalciferol (vitamin D3) 25 25 mcg PO DAILY 12/30/24 12/30/24 Unknown History mcg (1,000 unit) tablet oxycodone 5 mg tablet 5 mg PO Q4H PRN pain 12/30/24 12/30/24 Unknown History polyethylene glycol 3350 17 gram 17 g PO DAILY 12/30/24 12/30/24 Unknown History oral powder packet sennosides 8.6 mg-docusate sodium 2 tab-cap PO BID 12/30/24 12/30/24 Unknown History 50 mg tablet Allergies Allergy/AdvReac Type Severity Reaction Status Date / Time No Known Allergies Allergy Verified 04/16/25 15:09 Review of Systems Review of Systems: Pertinent positives per HPI. Patient denies any fever, chills, rash, headache, visual changes, dizziness, cough, runny nose, sore throat, shortness of breath, chest pain, palpitations, nausea, vomiting, diarrhea, constipation, abdominal pain, or any urinary issues. [facility] Past Medical History Medical History (Updated 04/16/25 @ 15:39 by Markie Gonzalez APRN) Fractures involving multiple body regions Elevated LFTs Anemia Breast mass, right Osteoarthritis of right patellofemoral joint Knee pain Encounter to discuss test results Screen for colon cancer Screening mammogram, encounter for Bladder polyps Bladder cancer Kidney stones UTI (urinary tract infection) HTN (hypertension) Surgical History Surgical History Hx of colonoscopy History of bladder surgery H/O: hysterectomy H/O lumpectomy Family History Family History Father Acute myocardial infarction Mother , breast cancer. Breast cancer Sibling No problems noted. Other Family history non-contributory Social History Social History Smoking status: Former smoker Tobacco type: cigarettes Second hand tobacco smoke exposure: No Alcohol intake: never Substance use: never Substance use type: does not use Do You Feel Safe in your Home?: Yes Lack of Transportation: No Lack of Food: Never True Current Housing: I Have Housing Concerned About Future Housing: No Difficulty Paying Gas/Electric Bills: No Difficulty Paying for Meds: No Currently Unemployed: No Education: High School Diploma/GED Difficulty w/ Childcare or Family Care: No Living arrangements: with family Occupation/Education: retired 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 Gender identity (if verbalized by the patient): Female Spiritual care concerns: No Comments At the time of my signature, I reviewed and agree with the nursing past medical, surgical, social, and family history. There is no relevant family history pertinent to the patient complaint. Exam Narrative: General: Well-developed, well nourished, in no apparent distress Head: Normocephalic, atraumatic. Cardio: Regular rate and rhythm, s1 and s2 normal, no murmur appreciated. Resp: Clear to auscultation bilaterally, no rhonchi, rales, wheezing or rubs. Musculoskeletal: No deformity, tender to palpation over the trapezius musculature, left mid back musculature and left lower back musculature, no midline cervical, thoracic, or lumbar pain to palpation, grossly normal range of motion, muscle strength strong and equal in BLE. SLT negative. Patellar reflexes 2/4 bilaterally, negative foot drop, slow moving gait and station Course Course Emergency Course: Portions of this record may have been created with voice recognition software. Level of Care: Express Care Visit Vital Signs Vital signs: Vital Signs Temperature 36.9 C 04/16/25 15:20 Pulse Rate 90 04/16/25 15:20 Respiratory Rate 16 04/16/25 15:20 Blood Pressure 152/81 H 04/16/25 15:20 Pulse Oximetry 98 04/16/25 15:20 Oxygen Delivery Room Air 04/16/25 15:20 Temperature 36.9 C 04/16/25 15:20 Pulse Rate 90 04/16/25 15:20 Respiratory Rate 16 04/16/25 15:20 Blood Pressure 152/81 H 04/16/25 15:20 Pulse Oximetry 98 04/16/25 15:20 Oxygen Delivery Room Air 04/16/25 15:20 Vital signs reviewed MDM - Back Pain/Injury MDM Narrative Medical decision making narrative: At the time of visit patient is resting comfortably on the exam table. Patient appears to be nontoxic. Patient is currently rating her pain 5/10. Has taken Tylenol and ibuprofen for her symptoms and she has had some relief. Has not had a fall or other injury other than lifting and moving furniture. I suspect she likely has a muscle strain to her lower low back and since she slept in a recliner last night that cause some strain to her thoracic and trapezius musculature. She denies any radiculopathy. She denies any numbness or tingling in the groin or loss of bowel or bladder. I do not feel as though x-rays are needed at this time however I did offer and patient agrees not to have x-rays done at this time. Will send in prescriptions for muscle strain-Medrol Dosepak and Robaxin Plan: I suspect patient has muscle strain to the trapezius musculature, thoracic musculature in the lumbar musculature. Prescription for Medrol Dosepak and Robaxin was sent to the pharmacy. Sedation precautions were reviewed. Supportive measures were discussed with the patient and they voiced understanding discharge instructions and agrees to treatment plan. Return precautions reviewed Differential Diagnosis Differential diagnosis: Likely lumbar radiculopathy, sciatica, strain of lumbar region, renal colic, pyelonephritis, thoracic back pain, AAA, discitis and other (Trapezius muscle strain, thoracic muscle strain) Discharge Plan Discharge Clinical Impression: Strain of muscle and tendon of back wall of thorax, initial encounter, Strain of muscle, fascia and tendon of lower back, initial encounter Strain of trapezius muscle Qualifiers: Encounter type: initial encounter Laterality: left Qualified Code(s): S46.812A - Strain of other muscles, fascia and tendons at shoulder and upper arm level, left arm, initial encounter Patient Disposition: Home Condition: Stable Instructions: Antibiotic Form, Muscle Strain (ED), Low Back Strain (ED), Thoracic Back Strain (ED) Additional Instructions: Take any prescription medication only as prescribed-methocarbamol and Medrol Dosepak Be mindful of sedation precautions given to you if taking a muscle relaxer. May use heat or ice to the affected area Consider massage or chiropractor adjustment if this was discussed with provider May use blue emu, lidocaine patches, or asper cream to affected area- do not apply heat or ice directly over cream- can cause burn. Complete appropriate back stretching exercises. Follow up with your PCP in 3-5 days if symptom persist. Patient Language: Setswana Prescriptions: New methocarbamol 500 mg tablet 500 mg PO TID PRN (Reason: muscle spasm) 7 Days Qty: 21 0RF methylprednisolone [Medrol (Graham)] 4 mg tablets,dose pack See Rx Instructions PO .COMPLEX Qty: 21 0RF Rx Instructions: orally per package directions No Action ergocalciferol (vitamin D2) 1,250 mcg (50,000 unit) capsule 50,000 unit PO WEEKLY Qty: 8 0RF cholecalciferol (vitamin D3) 25 mcg (1,000 unit) tablet 25 mcg PO DAILY oxycodone 5 mg tablet 5 mg PO Q4H PRN (Reason: pain) polyethylene glycol 3350 17 gram powder in packet 17 g PO DAILY sennosides-docusate sodium 8.6-50 mg tablet 2 tab-cap PO BID acetaminophen 325 mg Tablet 975 mg PO Q6H PRN (Reason: Pain) Qty: 0 0RF Eliquis 2.5 mg Tablet 2.5 mg PO BID 21 Days Qty: 42 0RF methocarbamol 500 mg Tablet 500 mg PO TID PRN (Reason: Spasms) Qty: 90 0RF aspirin [Children's Aspirin] 81 mg Tablet,Chewable 81 mg PO DAILY@0800 Qty: 30 0RF Follow-up/Referrals: Rex Benedict MD [Primary Care Provider] - Time of Disposition: 15:40 Quality NIHSS Nursing Documentation ED NIHSS nursing documentation: reviewed/agree
[2025-04-16 15:20] VITALS: BP 152/81; PULSE 90; RESP 16; TEMP 36.9; O2SAT 98
== END 2025-04-16 15:48 | disposition home or self-care (01) ==
PROVIDERS: Emergency Provider Nurse Practitioner Family; PCP Family Medicine
DX: S29.012A Strain of muscle and tendon of back wall of thorax, initial encounter (principal); S46.812A Strain of other muscles, fascia and tendons at shoulder and upper arm level, left arm, initial encounter; X50.1XXA Overexertion from prolonged static or awkward postures, initial encounter; S39.012A Strain of muscle, fascia and tendon of lower back, initial encounter; X50.0XXA Overexertion from strenuous movement or load, initial encounter; I10 Essential (primary) hypertension; M17.11 Unilateral primary osteoarthritis, right knee; Z87.891 Personal history of nicotine dependence
CPT/HCPCS: 99213; G0463

== ENCOUNTER 2025-04-21 16:13 | Outpatient (CLI) | payer MEDICARE, OTHER, SELFPAY ==
--- NOTE | ~2025-04-21 | XR_ITS ---
EXAM: XR lumbar spine 2-3V DATE: 04/21/2025 16:25 HISTORY: M54.50 - Low back pain, unspecified . COMPARISON: None available. FINDINGS: Osteopenia. Moderate scoliosis. 5 nonrib-bearing lumbar-type vertebral bodies. Pedicles int act. 5 mm retrolisthesis at L2-3. 6 mm retrolisthesis at L3-4. 6 mm anterolisthesis at L4-5. Vertebra l body heights preserved. Multilevel severe disc space narrowing and moderate marginal osteophytosis. Severe facet hypertrophy and sclerosis in the mid and lower lumbar spine with multilevel interspinou s narrowing. No fracture or dislocation. IMPRESSION: Scoliosis. Multilevel grade 1 listheses. Multilevel severe degenerative disc disease. Sev ere mid and lower lumbar facet arthropathy with interspinous narrowing. Reviewed, dictated and finalized at location K. IMPRESSION: Scoliosis. Multilevel grade 1 listheses. Multilevel severe degenera tive disc disease. Severe mid and lower lumbar facet arthropathy with interspin ous narrowing.
== END 2025-04-21 16:14 | disposition home or self-care (01) ==
LOC: MICIMG 16:14
PROVIDERS: PCP Family Medicine; Visit Provider Nurse Practitioner Family
DX: M54.50 Low back pain, unspecified (principal); M41.86 Other forms of scoliosis, lumbar region; M43.06 Spondylolysis, lumbar region; M51.369 Other intervertebral disc degeneration, lumbar region without mention of lumbar back pain or lower extremity pain; M12.88 Other specific arthropathies, not elsewhere classified, other specified site
CPT/HCPCS: 72100

== ENCOUNTER 2025-10-03 10:00 | Outpatient (RCR) | payer MEDICARE, OTHER, SELFPAY ==
--- NOTE | 2025-08-25 11:27 | PTOPEVAL1 ---
Assessment and note entered by Fransisca Solano, PT Evaluation Information Assessment Status Evaluation Diagnosis closed displaced intertrochanteric fx R femur S72. 141A ICD-10 Condition Codes (PT) Pain in right hip M25.551,Difficulty Walking R26.2 ,Abnormalities of gait and mobility R26.9,Weakness R53.1,Encounter for other orthopedic aftercare Z47.89 Onset 07/29/2025 Subjective Information Pt had a broken femur, was in therapy for this but then the femur collapsed. Just underwent angeles- arthroplasty Jul 29 posterior approach. Went straight home, had nursing but no home health PT. Gentle walking with the walker for 3 weeks. Only taking tylenol for pain, doing well with this . Reported Pain Level Pain Score 0: Self Report Assessment PT Clinical Summary Pt presents s/p angeles-arthroplasty femoral component with posterior approach on Jul 29, 2025 after complications with ORIF from fracture. She is doing very well with her mobility and pain ranging from 0-3/10, presenting to clinic with 2w- w and quick, smooth gait though her PLOF is without AD. Demonstrates appropriate functional passive range within precautions, weakness limiting active range without assist for bed mobility and some exercises. She appears to understand her precautions well and is being cautious with her activities. Today she was educated she may use her single point cane in her home, monitoring for soreness but to continue 2w-w for community distances until therapy is able to improve gait endurance. She has discomfort in the musculature of the anterior thigh, soft tissue mobilization was initiated today as well. Pt will greatly benefit from physical therapy in order to improve strength, endurance, gait, mobility, and discomfort to meet pt overall goals of walking without AD, and to achieve highest functional independence. Plan of Care Interventions Electrical Stimulation,Gait Training,Manual Therapy,Neuro Re-education,Therapeutic Activities, Therapeutic Exercise,Self-Care/Home Management PT Services Indicated Yes Treatment Frequency and 3x weekly x 8 weeks per prescription Duration These treatments will address the objective and functional deficits as defined above. The patient will be advanced safely and appropriately in order for the patient to progress towards his/her prior level of function. Additional exercises will be introduced and as well as a comprehensive home exercise program upon discharge, if needed, ?to ensure carryover of functional gains achieved in the clinic. This treatment plan has been reviewed and agreement upon by the patient.
--- NOTE | 2025-08-25 11:27 | OPREHPOC ---
Outpatient Therapy Plan of Care This is a Multidisciplinary Plan of Care that may contain components documented by all disciplines (PT, OT, and ST.) PT Problem 1 PT Problem #1 Knowledge Deficit PT Goal 1 Goal / Goal Update Pt will be independent in HEP Pt will verbalize understanding of diagnosis and prognosis Target Visit 10 PT Problem 2 PT Problem #2 Impaired Gait PT Goal 1 Goal / Goal Update Pt will demonstrate 2 min walk test of 300 ft with SPC and minimal gait abnormalities to progress toward her PLOF Target Visit 10 PT Goal 2 Goal / Goal Update Pt will demonstrate ambulation of 150 ft without AD and minimal gait abnormalities for community mobility Target Visit 20 PT Problem 3 PT Problem #3 Impaired Strength PT Goal 1 Goal / Goal Update Pt will demonstrates 3/5 strength in hip extension and abduction to show improved strength for hip stability, gait, and mobility purposes Target Visit 10 PT Goal 2 Goal / Goal Update Pt will show a 4/5 in hip extension and abduction for improved strength for hip stability, gait, and mobility purposes Target Visit 20
--- NOTE | 2025-09-05 12:59 | PCPTNOTE ---
Pt canceled due to want see her before she comes back to therapy.
--- NOTE | 2025-09-14 10:29 | PTOPPROG ---
Assessment and note entered by Jadyn Donaldson, PT Re-Evaluation Information Assessment Status Progress Diagnosis closed displaced intertrochanteric fx R femur S72. 141A ICD-10 Condition Codes (PT) Pain in right hip M25.551,Difficulty Walking R26.2 ,Abnormalities of gait and mobility R26.9,Weakness R53.1,Encounter for other orthopedic aftercare Z47.89 Onset 07/29/2025 Subjective Information Pt reports 80% improvement since surgery. Unable to squat and stoop forward to pull pants up or pick objects off the floor. Assessment PT Clinical Summary Pt received 6 treatment sessions and demos good progress with therapy. She is currently on Phase 3 protocol (week 7 post op and beyond), hip precautions were lifted last visit with Surgeon on 09/08/2025. She partially met her goals, however she continue to present limitation of active ROM to all motions of hip and knee which impact functional mobility and ambulation safety; decreased strength, soft tissue tightness, balance and gait deficits requiring a cane for stability at this time. Pt will greatly benefit from skilled PT to address deficits, further work towards achieving established goals and improve safety with performing indep mobility and community navigation. Plan of Care Interventions Electrical Stimulation,Gait Training,Manual Therapy,Neuro Re-education,Therapeutic Activities, Therapeutic Exercise,Self-Care/Home Management PT Services Indicated Yes Treatment Frequency and 3x/wk x 12 visits Duration These treatments will address the objective and functional deficits as defined above. The patient will be advanced safely and appropriately in order for the patient to progress towards his/her prior level of function. Additional exercises will be introduced and as well as a comprehensive home exercise program upon discharge, if needed, ?to ensure carryover of functional gains achieved in the clinic. This treatment plan has been reviewed and agreement upon by the patient.
--- NOTE | 2025-09-14 10:29 | OPREHPOC ---
Outpatient Therapy Plan of Care This is a Multidisciplinary Plan of Care that may contain components documented by all disciplines (PT, OT, and ST.) PT Problem 1 PT Problem #1 Knowledge Deficit PT Goal 1 Goal / Goal Update Pt will be independent in HEP Pt will verbalize understanding of diagnosis and prognosis 09/14/2025 update: Pt will perform return demo of HEPs to improve hip stability and flexibility exercises Target Visit 10 Progress Partially Met PT Problem 2 PT Problem #2 Impaired Gait PT Goal 1 Goal / Goal Update Pt will demonstrate 2 min walk test of 300 ft with SPC and minimal gait abnormalities to progress toward her PLOF update 09/14/2025: upgrade to 450ft or more with LRAD without c/o burning sensation Target Visit 10 Progress Partially Met PT Goal 2 Goal / Goal Update Pt will demonstrate ambulation of 150 ft without AD and minimal gait abnormalities for community mobility Target Visit 20 Progress Partially Met PT Problem 3 PT Problem #3 Impaired Strength PT Goal 1 Goal / Goal Update Pt will demonstrates 3/5 strength in hip extension and abduction to show improved strength for hip stability, gait, and mobility purposes 09/14/2025 update: cont with this goal Target Visit 10 Progress Partially Met PT Goal 2 Goal / Goal Update Pt will show a 4/5 in hip extension and abduction for improved strength for hip stability, gait, and mobility purposes Target Visit 20
--- NOTE | 2025-09-26 09:43 | PCPTNOTE ---
Called and cancelled, sick per front office. AKS
--- NOTE | 2025-10-03 12:02 | OPREHPOC ---
Outpatient Therapy Plan of Care This is a Multidisciplinary Plan of Care that may contain components documented by all disciplines (PT, OT, and ST.) PT Problem 1 PT Problem #1 Knowledge Deficit PT Goal 1 Goal / Goal Update Pt will be independent in HEP Pt will verbalize understanding of diagnosis and prognosis 09/14/2025 update: Pt will perform return demo of HEPs to improve hip stability and flexibility exercises Target Visit 10 Progress Met PT Problem 2 PT Problem #2 Impaired Gait PT Goal 1 Goal / Goal Update Pt will demonstrate 2 min walk test of 300 ft with SPC and minimal gait abnormalities to progress toward her PLOF update 09/14/2025: upgrade to 450ft or more with LRAD without c/o burning sensation Target Visit 10 Progress Met PT Goal 2 Goal / Goal Update Pt will demonstrate ambulation of 150 ft without AD and minimal gait abnormalities for community mobility Target Visit 20 Progress Met PT Problem 3 PT Problem #3 Impaired Strength PT Goal 1 Goal / Goal Update Pt will demonstrates 3/5 strength in hip extension and abduction to show improved strength for hip stability, gait, and mobility purposes 09/14/2025 update: cont with this goal Target Visit 10 Progress Met PT Goal 2 Goal / Goal Update Pt will show a 4/5 in hip extension and abduction for improved strength for hip stability, gait, and mobility purposes Target Visit 20 Progress Partially Met
--- NOTE | 2025-10-03 12:02 | PTOPDC ---
Assessment and note entered by Jose Chaidez, PT Evaluation Information Assessment Status Discharge Diagnosis closed displaced intertrochanteric fx R femur S72. 141A ICD-10 Condition Codes (PT) Pain in right hip M25.551,Difficulty Walking R26.2 ,Abnormalities of gait and mobility R26.9,Weakness R53.1,Encounter for other orthopedic aftercare Z47.89 Onset 07/29/2025 Subjective Information Reports that overall she feel she is doing well after approximately 8 months of therapy. She is using her cane but is not dependent on it. No longer having pain or discomfort with ambulation. Feels comfortable with discharge and plans to continue exercise independently. Reported Pain Level Pain Score 0: Self Report Assessment PT Clinical Summary Patient has seen significant progress towards hi mobility and gross LE strength. Still demonstrating uneven gait pattern with lean but likely contributed from R knee genu valgus. Cane helps with correction. 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 Plan of Care PT Services Indicated Yes
== END 2025-10-03 16:57 | disposition home or self-care (01) ==
LOC: ANHPT 10:00
PROVIDERS: PCP Family Medicine
DX: S72.141A Displaced intertrochanteric fracture of right femur, initial encounter for closed fracture (principal)
CPT/HCPCS: 97110; 97116; 97140; 97162; 97530; 97750